=== PATIENT | female | born 1985 | race Two or more races ===

== ENCOUNTER 2016-10-09 13:25 | Observation (INO) | payer OTHER ==
[2016-03-03 20:15] VITALS: BP 133/59
[~2016-10-09 13:25] MED LIST: MEDR150D3 IM; METR500T8 PO; NITR100C62 PO; PNV1TABL25 PO
[2016-10-09 14:33] LABS: BILIRUBIN,URINE NEGATIVE (NEG); GLUCOSE,URINE NEGATIVE (NEG); NITRITE,URINE NEGATIVE (NEG); PH,URINE 6.5; PROTEIN,URINE NEGATIVE (NEG-TRACE)
[2016-10-09 14:48] LABS: BACTERIA,URINE MANY /HPF (0-FEW); RBC,URINE 0 /HPF (0-2); SQUAMOUS EPITHELIAL CELL,UR MANY /LPF
[2016-10-09] MEDS ORDERED: IV RINGERS,LACTATED 1000ML 1,000 ML IV SCH (15:00)
--- NOTE | 2016-10-09 17:03 | RAD ---
Indication: Fall, evaluate for placental abruption and amniotic fluid index. Technique: Limited third trimester OB ultrasound was performed transabdominally. Findings: There is a single intrauterine gestation in cephalic presentation. The placenta is fundal in location without evidence of placental previa. There is no evidence of placental abruption. There are placental lakes. Cervical region is not well evaluated. CB measured 5.9 cm. Biometrical data is as follows: BPD = 9.68 cm, with a corresponding gestational age of 39 weeks 4 days. HC = 34.11 cm, with a corresponding gestational age of 39 weeks 2 days. AC = 33.79 cm, with a corresponding gestational age of 37 weeks 5 days. FL = 7.49 cm, with a corresponding gestational age of 38 weeks 2 days. Ratio of head circumference to abdominal circumference is 1.01. Cephalic index is 85%. Normal range is 70% to 86%. Overall, the estimated sonographic gestational age is 38 weeks 5 days for an estimated date of delivery of October 18, 2016. Estimated weight is 3439 g, 70th percentile. A full survey was not performed. heart tones of 149 bpm are documented. Cord as the ratios were measured twice, 2.3 and 1.8. This is within normal limits. IMPRESSION: 1. No evidence of placental abruption. 2. Amniotic fluid index is 5.9 cm. At 38 weeks, the median CB is 13.2 cm, the 5th percentile 7.3 cm, and the 2.5 percentile 6.5 cm. Amniotic fluid index is greater than 2 standard deviations below the mean.
[2016-10-09] MEDS ORDERED: ACETAMINOPHEN 500 MG TABLET PO PRN (19:15)
== END 2016-10-09 21:13 | disposition home or self-care (01) ==
LOC: 3 SO LND 13:25
PROVIDERS: ADMIT Specialist; ATTEND Specialist
DX: O26.893 Other specified pregnancy related conditions, third trimester (principal); M79.659 Pain in unspecified thigh; Z3A.37 37 weeks gestation of pregnancy
CPT/HCPCS: 36415; 76815; 81001; 86850; 86900; 86901; 87086; G0378; G0379

== ENCOUNTER 2017-08-09 19:28 | Emergency (ER) | payer SELFPAY, OTHER ==
[2017-08-09 19:55] LABS: URINE HCG POC HCG NEGATIVE (Negative)
[2017-08-09 20:36] LABS: BILIRUBIN,URINE NEGATIVE (NEG); CLARITY,URINE CLEAR; COLOR,URINE YELLOW; GLUCOSE,URINE NEGATIVE (NEG); NITRITE,URINE NEGATIVE (NEG); PROTEIN,URINE NEGATIVE (NEG-TRACE)
[2017-08-09 20:51] LABS: BACTERIA,URINE FEW /HPF (0-FEW); RBC,URINE OCC /HPF (0-2); SQUAMOUS EPITHELIAL CELL,UR MOD /LPF
[2017-08-09] MEDS: ACETAMINOPHEN 500 MG TABLET PO (23:04)
[2017-08-11 14:33] LABS: CHLAMYDIA PROBE Negative (Negative); GC PROBE Negative (Negative)
== END 2017-08-09 23:08 | disposition home or self-care (01) ==
LOC: ER 19:28
DX: N39.0 Urinary tract infection, site not specified (principal); S30.814A Abrasion of vagina and vulva, initial encounter; Z98.51 Tubal ligation status; Z88.6 Allergy status to analgesic agent; X58.XXXA Exposure to other specified factors, initial encounter; Y93.89 Activity, other specified; Y99.8 Other external cause status; Y92.89 Other specified places as the place of occurrence of the external cause
CPT/HCPCS: 81001; 81025; 87086; 87491; 87591; 99284; Q0111

== ENCOUNTER 2018-04-15 10:44 | Emergency (ER) | payer SELFPAY ==
[~2018-04-15] VITALS: Ht 165.1 cm; Wt 117.9 kg
[~2018-04-15 10:44] MED LIST changes: +CIPR500T94 PO; +METR-34 PO; -METR500T8 PO; +NAPR-514 PO; +OXYC1TAB15 PO
[2018-04-15 11:01] VITALS: BP 133/64
[2018-04-15] MEDS ORDERED: AMOX1TAB61 PO (11:15)
[2018-04-15] MEDS ORDERED: HYDR-3164 PO (11:15)
--- NOTE | 2018-04-15 11:18 | PHYS DOC ---
Past Medical History Past Medical History: No Pertinent History Past Surgical History: Tubal ligation Alcohol Use: None Drug Use: None Adult General Chief Complaint Chief Complaint: DENTAL PROBLEM HPI HPI Patient is a 32 year old female presents with dental pain times a few days lower molar has appointment April 25 get it removed no fever. Pain is moderately severe sharp Allergies Allergies Allergies Coded Allergies Type Severity Reaction Last Updated Verified ibuprofen Allergy Intermediate rash hives 10/21/16 Yes Physical Exam Physical Exam Constitutional: Well developed, well nourished, no acute distress, non-toxic appearance. [] HENT: Poor dentition right molar mild gum swelling no obvious focal periapical abscess. NO FACIAL SWELLING Eyes: PERRLA, EOMI, conjunctiva normal, no discharge. [] Neck: Normal range of motion, no tenderness, supple, no stridor. [] Pulmonary: Normal respiratory effort no increased work of breathing no obvious chest wall trauma A Back: No tenderness, no CVA tenderness. [] Extremities: No tenderness, no cyanosis, no clubbing, ROM intact, no edema. [] Neurologic: Alert and oriented X 3, normal motor function, normal sensory function, no focal deficits noted. [] Psychologic: Affect normal, judgement normal, mood normal. [] Current Patient Data Vital Signs Vital Signs Date Time Temp Pulse Resp B/P (MAP) Pulse Ox O2 Delivery O2 Flow Rate FiO2 04/15/18 11:01 98.3 64 16 133/64 (87) 97 Room Air 98.3 EKG EKG [] Radiology/Procedures Radiology/Procedures [] Course & Med Decision Making Course & Med Decision Making Pertinent Labs and Imaging studies reviewed. (See chart for details) [] Dragon Disclaimer Dragon Disclaimer This electronic medical record was generated, in whole or in part, using a voice recognition dictation system. Departure Departure Impression: Primary Impression: Pain, dental Disposition: HOME, SELF-CARE Condition: STABLE Patient Instructions: Dental Pain, [id number] Scripts Amoxicillin/Potassium Clav (AUGMENTIN 875-125 TABLET) 1 Each Tablet 1 TAB PO BID, #14 TAB Prov: VLADIMIR ESCAMILLA MD 04/15/18 Hydrocodone/Apap 5-325 (NORCO 5-325 TABLET) 1 Each Tablet 1-2 EACH PO PRN Q6HRS PRN for PAIN, #15 as needed for pain Prov: VLADIMIR ESCAMILLA MD 04/15/18 VLADIMIR ESCAMILLA MD Apr 15, 2018 11:17
== END 2018-04-15 11:24 | disposition home or self-care (01) ==
LOC: ER 10:44
DX: K08.89 Other specified disorders of teeth and supporting structures (principal); K00.7 Teething syndrome; Z98.51 Tubal ligation status; Z88.6 Allergy status to analgesic agent
CPT/HCPCS: 99283

== ENCOUNTER 2019-10-16 19:02 | Emergency (ER) | payer BC, OTHER ==
[~2019-10-16] VITALS: Ht 162.6 cm; Wt 105.0 kg
[~2019-10-16 19:02] MED LIST changes: +AMOX1TAB61 PO; +HYDR-3164 PO
[2019-10-16 19:33] LABS: BILIRUBIN,URINE NEGATIVE (NEG); CLARITY,URINE CLEAR; COLOR,URINE YELLOW; NITRITE,URINE NEGATIVE (NEG); PROTEIN,URINE NEGATIVE (NEG-TRACE)
[2019-10-16 19:37] LABS: SQUAMOUS EPITHELIAL CELL,UR FEW /LPF
[2019-10-16 19:38] LABS: BACTERIA,URINE 0 /HPF (0-FEW); RBC,URINE OCC /HPF (0-2); WBC,URINE OCC /HPF (0-4)
[2019-10-16 20:51] LABS: BASO % 0 % (0-3); EOS # 0.1 x10^3/uL (0.0-0.7); EOS % 2 % (0-3); HEMATOCRIT 36.8 % (36.0-47.0); HEMOGLOBIN 12.5 g/dL (12.0-15.5); LYMPH # 2.7 x10^3/uL (1.0-4.8); LYMPH % 34 % (24-48); MEAN CORPUSCULAR HEMOGLOBIN 27 pg (25-35); MEAN CORPUSCULAR HGB CONC 34 g/dL (31-37); MEAN CORPUSCULAR VOLUME 79 fL (79-100); MONO # 0.9 x10^3/uL (0.0-1.1); MONO % 12 % (0-9); NEUT % 52 % (31-73); PLATELET COUNT 249 x10^3/uL (140-400); RED BLOOD COUNT 4.67 x10^6/uL (3.50-5.40); RED CELL DISTRIBUTION WIDTH 14.1 % (11.5-14.5); WHITE BLOOD COUNT 7.8 x10^3/uL (4.0-11.0)
[2019-10-16 20:58] LABS: CALCIUM 8.7 mg/dL (8.5-10.1); CREATININE 0.6 mg/dL (0.6-1.0); GFR 115.1; POTASSIUM 3.9 mmol/L (3.5-5.1)
[2019-10-16 21:04] LABS: ALBUMIN 3.2 g/dL (3.4-5.0); ALBUMIN/GLOBULIN RATIO 0.7 (1.0-1.7); TOTAL BILIRUBIN 0.3 mg/dL (0.2-1.0); TOTAL PROTEIN 7.6 g/dL (6.4-8.2)
[2019-10-16] MEDS ORDERED: ONDANSETRON PF 4 MG/2 ML VIAL. IV ONE (21:15)
[2019-10-16] MEDS ORDERED: IV NORMAL SALINE 1000ML BAG 1,000 ML IV ONE (21:15)
[2019-10-16] MEDS ORDERED: fentaNYL PF VIAL 100 MCG/2 ML VIAL IV ONE (21:15)
[2019-10-16] MEDS ORDERED: IOHEXOL 300 MG/ML 100ML VIAL. IV ONE (21:15)
[2019-10-16] MEDS ORDERED: CONTRAST GIVEN. MC PRN (21:15)
--- NOTE | 2019-10-16 21:35 | RAD ---
CT ABD PELV W/ IV CONTRST ONLY History: Reason: bilateral groin pain with palpation. / Spl. Instructions: / History: Technique: After the administration of intravenous contrast, CT imaging was performed of the abdomen and pelvis. Multiplanar images are reviewed. Exposure: One or more of the following individualized dose reduction techniques were utilized for this examination: 1. Automated exposure control 2. Adjustment of the mA and/or kV according to patient size 3. Use of iterative reconstruction technique. Comparison: September 09, 2014 Findings: Lower chest: No consolidation or pleural effusion. Abdomen and pelvis: The liver, adrenal glands, and pancreas are unremarkable. Contracted gallbladder. No biliary ductal dilatation. Splenic lesion with peripheral calcification measures 1.8 x 1.8 cm, unchanged compared to prior. Normal appearance the kidneys. No hydronephrosis. Normal appendix. No evidence of bowel obstruction. No pathologic lymphadenopathy. No ascites. No evidence of inguinal or anterior abdominal wall hernias. Bones: No pathologic osseous lesions. Impression: 1. No acute abdominal or pelvic pathology. 2. Benign-appearing splenic lesion with peripheral calcification, unchanged in overall size compared to 2015. Electronically signed by: Modesto Mendoza DO (10/16/2019 9:32 PM) [facility]
--- NOTE | 2019-10-16 22:43 | RAD ---
Exam: Ultrasound soft tissue pelvis limited Indication: Bilateral groin pain Technique: Real-time grayscale and color Doppler images of the bilateral inguinal regions were obtained by the department intermediate school teacher. Comparisons: CT same day FINDINGS: Visualized inguinal vasculature is normal. Normal-appearing inguinal lymph nodes are seen. No focal fluid collection. IMPRESSION: No sonographic abnormality identified in the bilateral inguinal regions Electronically signed by: Ulices Caldera MD (10/16/2019 10:40 PM) [id number]
--- NOTE | 2019-10-16 22:48 | PHYS DOC ---
Past Medical History Past Medical History: No Pertinent History (HALLE GILLIS APRN) Past Surgical History: Tubal ligation (HALLE GILLIS APRN) Smoking Status: Never Smoker Alcohol Use: None Drug Use: None (HALLE GILLIS APRN) General Adult EDM: Chief Complaint: ABDOMINAL PAIN HPI: HPI: Patient is a 34 year old female who presents to the emergency department with complaints of pain in both of her groins for the last 4 days. She also reports pain with urination but denies any hematuria, increased urinary frequency or foul-smelling urine. She denies any irregular vaginal odor, vaginal discharge, or vaginal bleeding. She denies any fever, cough, shortness of breath, chest pain, nausea, vomiting, rash, headache, or sore throat. Currently denies any back pain. She states that the pain in her groin is worse with movement and palpation, she denies any bulging or palpable knot within the area. She currently rates her pain a 8 out of 10 on the pain scale, the pain does not radiate, and increases with palpation, she denies any alleviating factors. 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 (HALLE GILLIS APRN) Review of Systems: Review of Systems: Constitutional: Denies fever or chills. [] HENT: Denies nasal congestion or sore throat. [] Respiratory: Denies cough or shortness of breath. [] Cardiovascular: Denies chest pain or edema. [] GI: Denies abdominal pain, nausea, vomiting, bloody stools or diarrhea. [] : Denies dysuria; see HPI. [] Musculoskeletal: Denies back pain or joint pain. [] Integument: Denies rash. [] Neurologic: Denies headache Lymphatic: Denies swollen glands. [] Psychiatric: Denies depression or anxiety. [] (HALLE GILLIS APRN) Heart Score: Risk Factors: Risk Factors: DM, Current or recent (<one month) smoker, HTN, HLP, family history of CAD, obesity. Risk Scores: Score 0 - 3: 2.5% MACE over next 6 weeks - Discharge Home Score 4 - 6: 20.3% MACE over next 6 weeks - Admit for Clinical Observation Score 7 - 10: 72.7% MACE over next 6 weeks - Early Invasive Strategies (HALLE GILLIS AIDS NURSE) Current Medications: Current Medications Medications (Trade) Dose Ordered Sig/Foreign Start Time Stop Time Status Last Admin Dose Admin Fentanyl Citrate (Fentanyl 2ml Vial) 50 mcg 1X ONCE 10/16/19 21:15 10/16/19 21:16 DC 10/16/19 21:37 50 MCG Info (CONTRAST GIVEN -- Rx MONITORING) 1 each PRN DAILY PRN 10/16/19 21:15 10/18/19 21:14 Iohexol (Omnipaque 300 Mg/ml) 75 ml 1X ONCE 10/16/19 21:15 10/16/19 21:16 DC 10/16/19 21:14 75 ML Ondansetron HCl (Zofran) 4 mg 1X ONCE 10/16/19 21:15 10/16/19 21:16 DC 10/16/19 21:36 4 MG Sodium Chloride 1,000 ml @ 1,000 mls/hr 1X ONCE 10/16/19 21:15 10/16/19 22:14 DC 10/16/19 21:36 1,000 MLS/HR (HALLE GILLIS AIDS NURSE) Allergies: Allergies: Allergies Coded Allergies Type Severity Reaction Last Updated Verified ibuprofen Allergy Intermediate rash hives 10/21/16 Yes (HALLE GILLIS AIDS NURSE) Physical Exam: PE: Constitutional: Well developed, well nourished, no acute distress, non-toxic appearance; obese. [] HENT: Normocephalic, atraumatic, bilateral external ears normal, oropharynx moist, no oral exudates, nose normal. [] Eyes: PERRLA, EOMI, conjunctiva normal, no discharge. [] Neck: Normal range of motion, no stridor. [] Cardiovascular:Heart rate regular rhythm Lungs & Thorax: Bilateral breath sounds clear to auscultation, Respirations even and unlabored, no retractions, no respiratory distress Pelvic Exam: Abdomen: Nontender, soft External Genitalia: Normal Skin, shaven pubis, no erythema, no discharge Speculum: Declined by patient Bimanual: Declined by patient Skin: Warm, dry, no erythema, no rash. Extremities: No cyanosis, ROM intact, no edema. Neurologic: Alert and oriented X 3, no focal deficits noted. Psychologic: Affect normal, judgement normal, mood normal. (HALLE GILLIS APRN) Current Patient Data: Labs: Laboratory Tests Test 10/16/19 19:16 10/16/19 19:21 10/16/19 20:00 Urine Collection Type Unknown Urine Color Yellow Urine Clarity Clear Urine pH 6.0 (<5.0-8.0) Urine Specific [place] <=1.005 (1.000-1.030) Urine Protein Negative mg/dL (NEG-TRACE) Urine Glucose (UA) Negative mg/dL (NEG) Urine Ketones (Stick) Negative mg/dL (NEG) Urine Blood Negative (NEG) Urine Nitrite Negative (NEG) Urine Bilirubin Negative (NEG) Urine Urobilinogen Dipstick 1.0 mg/dL (0.2 mg/dL) Urine Leukocyte Esterase Negative (NEG) Urine RBC Occ /HPF (0-2) Urine WBC Occ /HPF (0-4) Urine Squamous Epithelial Cells Few /LPF Urine Bacteria 0 /HPF (0-FEW) POC Urine HCG, Qualitative Hcg negative (Negative) White Blood Count 7.8 x10^3/uL (4.0-11.0) Red Blood Count 4.67 x10^6/uL (3.50-5.40) Hemoglobin 12.5 g/dL (12.0-15.5) Hematocrit 36.8 % (36.0-47.0) Mean Corpuscular Volume 79 fL (79-100) Mean Corpuscular Hemoglobin 27 pg (25-35) Mean Corpuscular Hemoglobin Concent 34 g/dL (31-37) Red Cell Distribution Width 14.1 % (11.5-14.5) Platelet Count 249 x10^3/uL (140-400) Neutrophils (%) (Auto) 52 % (31-73) Lymphocytes (%) (Auto) 34 % (24-48) Monocytes (%) (Auto) 12 % (0-9) H Eosinophils (%) (Auto) 2 % (0-3) Basophils (%) (Auto) 0 % (0-3) Neutrophils # (Auto) 4.0 x10^3/uL (1.8-7.7) Lymphocytes # (Auto) 2.7 x10^3/uL (1.0-4.8) Monocytes # (Auto) 0.9 x10^3/uL (0.0-1.1) Eosinophils # (Auto) 0.1 x10^3/uL (0.0-0.7) Basophils # (Auto) 0.0 x10^3/uL (0.0-0.2) Sodium Level 141 mmol/L (136-145) Potassium Level 3.9 mmol/L (3.5-5.1) Chloride Level 106 mmol/L (98-107) Carbon Dioxide Level 30 mmol/L (21-32) Anion Gap 5 (6-14) L Blood Urea Nitrogen 8 mg/dL (7-20) Creatinine 0.6 mg/dL (0.6-1.0) Estimated GFR (Cockcroft-Gault) 115.1 BUN/Creatinine Ratio 13 (6-20) Glucose Level 101 mg/dL (70-99) H Calcium Level 8.7 mg/dL (8.5-10.1) Total Bilirubin 0.3 mg/dL (0.2-1.0) Aspartate Amino Transferase (AST) 20 U/L (15-37) Alanine Aminotransferase (ALT) 53 U/L (14-59) Alkaline Phosphatase 157 U/L (46-116) H Total Protein 7.6 g/dL (6.4-8.2) Albumin 3.2 g/dL (3.4-5.0) L Albumin/Globulin Ratio 0.7 (1.0-1.7) L Laboratory Tests 10/16/19 20:00 Laboratory Tests 10/16/19 20:00 Vital Signs: Vital Signs Date Time Temp Pulse Resp B/P (MAP) Pulse Ox O2 Delivery O2 Flow Rate FiO2 10/16/19 19:45 98.2 99 18 127/61 (83) 99 Room Air 98.2 (HALLE GILLIS APRN) EKG: EKG: [] (HALLE GILLIS APRN) Radiology/Procedures: Radiology/Procedures: PROCEDURE: CT ABD PELV W/ IV CONTRST ONLY CT ABD PELV W/ IV CONTRST ONLY History: Reason: bilateral groin pain with palpation. / Spl. Instructions: / History: Technique: After the administration of intravenous contrast, CT imaging was performed of the abdomen and pelvis. Multiplanar images are reviewed. Exposure: One or more of the following individualized dose reduction techniques were utilized for this examination: 1. Automated exposure control 2. Adjustment of the mA and/or kV according to patient size 3. Use of iterative reconstruction technique. Comparison: September 09, 2014 Findings: Lower chest: No consolidation or pleural effusion. Abdomen and pelvis: The liver, adrenal glands, and pancreas are unremarkable. Contracted gallbladder. No biliary ductal dilatation. Splenic lesion with peripheral calcification measures 1.8 x 1.8 cm, unchanged compared to prior. Normal appearance the kidneys. No hydronephrosis. Normal appendix. No evidence of bowel obstruction. No pathologic lymphadenopathy. No ascites. No evidence of inguinal or anterior abdominal wall hernias. Bones: No pathologic osseous lesions. Impression: 1. No acute abdominal or pelvic pathology. 2. Benign-appearing splenic lesion with peripheral calcification, unchanged in overall size compared to 2014. PROCEDURE: PELVIS LIMITED OR FOLLOW UP Exam: Ultrasound soft tissue pelvis limited Indication: Bilateral groin pain Technique: Real-time grayscale and color Doppler images of the bilateral inguinal regions were obtained by the department mule tender. Comparisons: CT same day FINDINGS: Visualized inguinal vasculature is normal. Normal-appearing inguinal lymph nodes are seen. No focal fluid collection. IMPRESSION: No sonographic abnormality identified in the bilateral inguinal regions Electronically signed by: Ulices Caldera MD (10/16/2019 10:40 PM) [id number] [] (HALLE GILLIS APRN) Course & Med Decision Making: Course & Med Decision Making Pertinent Labs and Imaging studies reviewed. (See chart for details) 34-year-old female presents to the emergency department with complaints of pain with urination, bilateral inguinal tenderness, and inguinal pain with movement Urinalysis was negative for any infection, pending urine gonorrhea and Chlamydia results low suspicion for STI CT abdomen pelvis was unremarkable, pelvic ultrasound was also unremarkable. CBC is unremarkable; CMP reveals alk phos of 157, glucose of 101, otherwise unremarkable. I advised the patient of all the test results, I am not sure why she is having the inguinal discomfort. Recommend taking Tylenol and application of warm moist heat. Also recommended the patient stop shaving her pubic hair. Encouraged the patient to follow-up with Dr. Jenkins or primary care doctor for further evaluation. Return to the ER if symptoms worsen or fever develops. [] ([place] Disclaimer: Deborah Disclaimer: This electronic medical record was generated, in whole or in part, using a voice recognition dictation system. (HALLE GILLIS APRN) Departure Departure Impression: Primary Impression: Bilateral groin pain Additional Impression: Dysuria Disposition: 01 HOME, SELF-CARE Condition: STABLE Referrals: MARCELA OWENS Jr, MD Patient Instructions: Abdominal Pain (Nonspecific) Additional Instructions: Apply warm packs to sore areas. Tylenol as needed for pain. Follow up with your primary care doctor in 1-2 days. Return to the ER if symptoms worsen or fever develops. [facility] [address] [place] [address] [facility] [address] [place] [address] [facility] [address] [facility] [place] [address] [facility] [address] [place] [address] [facility] [address] [place] [address] [address] [place] [address] [facility] [address] [place] [address] [facility] [address] [place] [address] [facility] [address] [place] [address] [facility] [address] [place] [address] Justicifation of Admission Dx: Justifications for Admission: Justification of Admission Dx: N/A (HALLE GILLIS APRN) Attending Signature Attending Signature I was personally available for consult in the emergency department. I have reviewed the chart and agree with the documentation as recorded by the REGINO including the assessment, treatment plan and disposition. (GERSON PALAFOX DO) HALLE GILLIS APRN Oct 16, 2019 22:48 GERSON PALAFOX DO Oct 17, 2019 06:30
[2019-10-16 23:00] VITALS: BP 119/57
== END 2019-10-16 23:05 | disposition home or self-care (01) ==
LOC: ER 19:02
DX: R10.31 Right lower quadrant pain (principal); R10.32 Left lower quadrant pain; R30.0 Dysuria; R35.0 Frequency of micturition; Z98.51 Tubal ligation status; Z88.8 Allergy status to other drugs, medicaments and biological substances
CPT/HCPCS: 36415; 74177; 76857; 80053; 81001; 81025; 85025; 87491; 87591; 96361; 96374; 96375; 99285; J2405; J3010; J7030; Q9967

== ENCOUNTER → 2020-10-10 | Outpatient (CLI) | payer BC, OTHER ==
[2020-10-11 00:09] LABS: T3 TOTAL 617 ng/dL (71-180); THYROXINE >24.9 ug/dL (4.5-12.0)
--- NOTE | 2020-10-11 10:36 | RAD ---
US THYROID History: Reason: Hyperthyroidism / Spl. Instructions: / History: Comparison: None. Technique: Multiple grayscale and color Doppler images of the thyroid gland were obtained. Findings: Right thyroid lobe: 6.4 x 3.0 x 3.2 cm. Heterogeneous echotexture. Increased vascularity. Left thyroid lobe: 6.0 x 3.1 x 3.6 cm. Homogeneous echotexture. Increased vascularity. Isthmus: 0.9 cm. No discrete thyroid nodule identified. IMPRESSION: 1. Enlarged diffusely heterogeneous thyroid with increased vascularity compatible with known thyroid itis. No discrete nodule identified. Electronically signed by: Modesto Mendoza DO (10/11/2020 10:33 AM) [id number]
== END ==
LOC: US 15:19
PROVIDERS: ATTEND Specialist
DX: E05.00 Thyrotoxicosis with diffuse goiter without thyrotoxic crisis or storm (principal)
CPT/HCPCS: 36415; 76536; 84436; 84443; 84480